=== PATIENT | male | born 1950 | race Caucasian/White ===

== ENCOUNTER → 2023-11-15 12:16 | Outpatient (REF) | payer OTHER, SELFPAY | LOC: DHCBC/DCA 12:16 | PROVIDERS: ATTENDING PHYSICIAN Internal Medicine Cardiovascular Disease; FAMILY PHYSICIAN Family Medicine | DX: R06.02 Shortness of breath (principal); I51.89 Other ill-defined heart diseases; R07.89 Other chest pain | CPT/HCPCS: 78452; 93017; A9500; J2785 ==

== ENCOUNTER → 2023-11-27 07:39 | Day surgery (SDC) | payer OTHER, SELFPAY ==
[2023-11-22 13:29] VITALS: BMI 26.8
[2023-11-22 13:54] LABS: % Basophils 0.8 % (0-2); % Eosinophils 4.3 % (0-6); % Immature Granulocytes 0.3 % (0-0.5); % Lymphocytes 21.4 % (20.5-51.1); % Monocytes 10.4 % (1.7-9.3); % Neutrophils 62.8 % (42.2-75.2); Absolute Basophils 0.1 10^3/uL (0-0.2); Absolute Eosinophils 0.3 10^3/uL (0-0.7); Absolute Lymphocytes 1.6 10^3/uL (1.2-3.4); Absolute Monocytes 0.8 10^3/uL (0.1-0.6); Absolute Neutrophils 4.7 10^3/uL (1.4-6.5); Hematocrit 39.7 % (39.0-52.0); Hemoglobin 14.4 g/dL (13.0-18.0); Mean Corp Hgb Conc. 36.3 g/dL (33.0-37.0); Mean Corpuscular Volume 90.8 fL (80.0-94.0); Mean Platelet Volume 10.4 fL (7.4-10.4); Nucleated Red Blood Cells % 0 % (-); Platelet Count 152 10^3/uL (130-400); Red Blood Cell Count 4.37 10^6/uL (4.70-6.10); Red Cell Dist. Width 12.6 % (11.5-14.5); White Blood Cell Count 7.4 10^3/uL (4.8-10.8)
[2023-11-22 14:06] LABS: ALT (SGPT) 20 U/L (0-50); AST (SGOT) 23 U/L (17-59); Albumin 4.5 g/dl (3.5-5.0); Alkaline Phosphatase 79 U/L (38-126); Blood Urea Nitrogen 14 mg/dl (9-20); Calcium 9.5 mg/dl (8.4-10.2); Carbon Dioxide 27 mmol/L (22-30); Chloride 104 mmol/L (98-107); Estimated Creatinine Clearance 83 ml/min; Glucose 105 mg/dl (70-99); Potassium 4.1 mmol/L (3.5-5.1); Sodium 140 mmol/L (135-145); Total Bilirubin 0.8 mg/dl (0.2-1.3); Total Protein 7.5 g/dl (6.3-8.2); eGFR > 60.00
[2023-11-27 07:45] VITALS: BP 164/86
[2023-11-27 07:53] VITALS: BMI 27.4
--- NOTE | 2023-11-27 08:16 | PTCARENOTE ---
Pt states he took his eliquis this morning at 7am. Dr Lira made aware and in to speak to pt. Procedure cancelled for today and is to be rescheduled Monday.
--- NOTE | 2023-11-27 08:55 | PTCARENOTE ---
Pt ambulated out of recovery room without difficulty.
== END ==
LOC: CATH 07:39
PROVIDERS: ATTENDING PHYSICIAN Internal Medicine Cardiovascular Disease; FAMILY PHYSICIAN Family Medicine
DX: I48.0 Paroxysmal atrial fibrillation (principal); Z53.09 Procedure and treatment not carried out because of other contraindication; R07.89 Other chest pain; R06.02 Shortness of breath; I11.9 Hypertensive heart disease without heart failure; E78.2 Mixed hyperlipidemia; Z79.01 Long term (current) use of anticoagulants
CPT/HCPCS: 93005; 36415; 80053; 85025

== ENCOUNTER 2023-11-29 10:42 | Day surgery (SDC) | payer OTHER, SELFPAY ==
[2023-11-29] VITALS (10 sets, daily range): BP systolic 111–181; BP diastolic 66–88; BMI 26.8
[2023-11-29] MEDS: LOW STRENGTH ASPIRIN 324 MG PO (11:14)
[2023-11-29] MEDS: NSS 245 ML IV (11:17)
--- NOTE | 2023-11-29 12:45 | ITS.CL.ANGIO ---
[facility] - Angioplasty
Angioplasty
Procedure Report:
CARDIAC CATHETERIZATION REPORT
Date of Procedure: 11/29/2023
Referring: Alexis Lira D.O.
INDICATION: Accelerating angina, abnormal stress test.
PROCEDURE:
1. Left heart catheterization.
2. Coronary angiography.
3. Successful PCI to the ostium of the second diagonal.
ACCESS:
6 Pakistani right radial artery.
CATHETERS:
1. 5 Pakistani JR4.
2. 5 Pakistani JL 3.5.
3. 6 Pakistani EBU 4.0 guiding catheter.
HEMODYNAMIC DATA
Weight (kg): 78.9
AO (s/d/x, mmHg): 142/70/98
LV (s/x mmHg): 154/16
LEFT VENTRICULOGRAPHY: Not performed.
CORONARY ANGIOGRAPHY
Dominance: Left.
Left Main: Normal size, bifurcating vessel. There is no coronary artery disease.
LAD: Normal size vessel giving rise to 2 significant diagonals. There are luminal irregularities in the LAD. There is a 90% lesion in the ostium/proximal margin of the second diagonal.
Ramus: Congenitally absent.
Circumflex: Large size, dominant vessel giving rise to 2 significant marginals before terminating as an LPDA. There are minor luminal irregularities.
RCA: Small nondominant vessel.
INTERVENTION(S)
1. Successful PCI of the 90% ostial/proximal D2 lesion (Medtronic [place] 2.0 x 15 AYESHA) with reduction in stenosis to 0%, maintaining RAFAT-3 flow.
Narrative:
The decision was made to proceed with percutaneous coronary intervention. The diagnostic catheter was removed over a wire and a 6Fr EBU 4.0 guiding catheter was advanced to the aortic root and seated in the left main coronary artery. Additional
heparin was given and a Power Turn Flex wire was advanced into the distal second diagonal. A BMW wire was then advanced into the LAD proper for protection. Given the significant amount of overlap with the left dominant system on angiography, the
decision was made to advance a 6 Pakistani guide liner over a 2.0 x 12 semicompliant balloon in order to isolate the LAD and obtain better visualization. The guide liner was seated in the proximal LAD. During this positioning, the 2.0 x 12
semicompliant balloon was advanced across the culprit lesion in the diagonal. Angiography performed during positioning of the GuideLiner showed that the presence of the balloon across the lesion was occlusive, confirming the severity of the lesion.
The 90% ostial/proximal D2 lesion was predilated with a 2.0 x 12 semi-compliant balloon to 12 finesse. The semi-compliant balloon was removed and a Medtronic Wade Oxford 2.0 x 15 drug-eluting stent was advanced. The stent was deployed at 12
atmospheres. The stent balloon was removed. Angiography was performed in orthogonal views, confirming good stent expansion and an excellent angiographic result. The coronary wire was withdrawn and the guide was disengaged from the artery. The
catheter was removed over a standard J-wire.
Closure Device: Vascular band.
Radiation (mGy): 932.26
DAP (cm2.Gy): 54.1075
Fluoroscopy time (minutes): 9.4
Sedation time (minutes): 43
CONCLUSIONS
1. Left dominant circulation with luminal irregularities throughout and a 90% lesion in the ostium/proximal margin of the second diagonal, status post successful PCI (Medtronic Wade Oxford 2.0 x 15 AYESHA) with reduction in stenosis to 0%,
maintaining RAFAT-3 flow.
2. Top normal to mildly elevated filling pressures (LVEDP = 16 mmHg at 78.9 kg).
RECOMMENDATIONS:
1. Expectant management after cardiac catheterization via right radial approach.
2. Limited weight bearing on the right wrist for one week.
3. Antithrombotic therapy with clopidogrel and apixaban. No role for aspirin at this time.
4. Aggressive secondary prevention. Increase atorvastatin to 40 mg daily. Goal LDL <55.
5. Referral to cardiac rehab.
6. Stable for outpatient follow-up.
Copy to: Alexis Lira D.O., Miguel Reddy D.O.
Alexsi Lira DO, FACC, FACP
--- NOTE | 2023-11-29 14:47 | W.PN.UPDATE ---
Update Note
Progress Note Update
73 yo WM s/p PCI D2 x1 AYESHA (same day) He denies cp, sob, alessandro diet, voiding, amb w/o dizziness, R rad site c/d/i, EKG SB no new ST changes. He will be on Plavix and Eliquis (resume tonight). We will increase atorvastatin to 40mg daily. Cardiac rehab
c/s. He will f/u [facility] in 2 weeks. He is for d/c home after 530p if remains stable.
CONCLUSIONS
1. Left dominant circulation with luminal irregularities throughout and a 90% lesion in the ostium/proximal margin of the second diagonal, status post successful PCI (Medtronic [place] 2.0 x 15 AYESHA) with reduction in stenosis to 0%,
maintaining RAFAT-3 flow.
2. Top normal to mildly elevated filling pressures (LVEDP = 16 mmHg at 78.9 kg).
[2023-11-29 15:31] LABS: ACT-LR - POC > 397 Seconds (116-155)
== END 2023-11-29 17:05 | disposition home or self-care (01) ==
LOC: CATH 10:42
PROVIDERS: ATTENDING PHYSICIAN Internal Medicine Cardiovascular Disease; FAMILY PHYSICIAN Family Medicine
DX: I25.110 Atherosclerotic heart disease of native coronary artery with unstable angina pectoris (principal); J68.3 Other acute and subacute respiratory conditions due to chemicals, gases, fumes and vapors; E78.2 Mixed hyperlipidemia; I48.91 Unspecified atrial fibrillation; I10 Essential (primary) hypertension; Z79.82 Long term (current) use of aspirin; Z79.01 Long term (current) use of anticoagulants; Z79.02 Long term (current) use of antithrombotics/antiplatelets
CPT/HCPCS: 85347; 93005; 93458; C1725; C1769; C1874; C1887; C1894; C9600; Q9967

== ENCOUNTER → 2023-12-07 11:36 | Outpatient (REF) | payer OTHER, SELFPAY | LOC: HWRCS 11:36 | PROVIDERS: ATTENDING PHYSICIAN Internal Medicine Cardiovascular Disease; FAMILY PHYSICIAN Family Medicine | DX: R06.02 Shortness of breath (principal); I51.89 Other ill-defined heart diseases; R07.89 Other chest pain | CPT/HCPCS: 93306 ==

== ENCOUNTER 2024-03-05 06:32 | Day surgery (SDC) | payer OTHER, SELFPAY ==
[2024-02-28 10:05] VITALS: BMI 27.1
[2024-02-28 10:40] LABS: % Basophils 0.9 % (0-2); % Eosinophils 3.2 % (0-6); % Immature Granulocytes 0.2 % (0-0.5); % Lymphocytes 19.6 % (20.5-51.1); % Monocytes 11.8 % (1.7-9.3); % Neutrophils 64.3 % (42.2-75.2); Absolute Basophils 0.1 10^3/uL (0-0.2); Absolute Eosinophils 0.3 10^3/uL (0-0.7); Absolute Lymphocytes 1.6 10^3/uL (1.2-3.4); Absolute Neutrophils 5.2 10^3/uL (1.4-6.5); Hematocrit 39.7 % (39.0-52.0); Hemoglobin 14.1 g/dL (13.0-18.0); Mean Corp Hgb Conc. 35.5 g/dL (33.0-37.0); Mean Corpuscular Hgb 33.4 pg (27.0-31.0); Mean Corpuscular Volume 94.1 fL (80.0-94.0); Mean Platelet Volume 10.7 fL (7.4-10.4); Nucleated Red Blood Cells % 0 % (-); Platelet Count 157 10^3/uL (130-400); Red Blood Cell Count 4.22 10^6/uL (4.70-6.10); Red Cell Dist. Width 12.5 % (11.5-14.5)
[2024-02-28 10:46] LABS: ALT (SGPT) 41 U/L (0-50); AST (SGOT) 32 U/L (17-59); Albumin 4.5 g/dl (3.5-5.0); Alkaline Phosphatase 85 U/L (38-126); Blood Urea Nitrogen 17 mg/dl (9-20); Calcium 9.6 mg/dl (8.4-10.2); Carbon Dioxide 26 mmol/L (22-30); Chloride 105 mmol/L (98-107); Estimated Creatinine Clearance 82 ml/min; Glucose 103 mg/dl (70-99); Potassium 4.3 mmol/L (3.5-5.1); Sodium 144 mmol/L (135-145); Total Bilirubin 0.8 mg/dl (0.2-1.3); Total Protein 7.1 g/dl (6.3-8.2); eGFR > 60.00
[2024-03-05] VITALS (28 sets, daily range): BP systolic 103–179; BP diastolic 54–109
[2024-03-05 08:49] LABS: ACT-LR - POC 311 Seconds (116-155)
[2024-03-05 09:06] LABS: ACT-LR - POC 343 Seconds (116-155)
[2024-03-05 09:27] LABS: ACT-LR - POC 380 Seconds (116-155)
[2024-03-05 09:54] LABS: ACT-LR - POC 392 Seconds (116-155)
--- NOTE | 2024-03-05 10:28 | ITS.CL.ABL ---
[facility] - Ablation
Ablation
Procedure Report:
AFIB ablation:
Mr. Aaron is a very pleasant 73 yr old gentleman with symptomatic paroxysmal AF presented today to the EP lab for atrial fibrillation ablation.
Date of the Procedure:
03/05/2024
Indications:
Paroxysmal atrial fibrillation
Pre-Operative Diagnosis:
Paroxysmal atrial fibrillation
Post-Operative Diagnosis:
Paroxysmal atrial fibrillation
Procedure Performed:
Atrial fibrillation ablation with Pulsed-Field approach for pulmonary vein isolation
Performing Physician:
Dior Galeas MD
Assistants:
EP staff
Anesthesia:
See anesthesia records
Detailed Description of the Procedure:
Written informed consent was obtained from the patient after a full explanation of the risks and benefits of the procedure including the risks of sedation and anesthesia.
The patient was brought to the electrophysiology laboratory in stable condition in fasting state. Continuous electrocardiographic and hemodynamic monitoring was initiated.
The initial rhythm was normal sinus rhythm.
The procedure site was meticulously prepared with surgical scrub and allowed to dry with no pooling. Sterile draping was applied to cover the procedure site. The image intensifier was draped with sterile bag and positioned over the patient. After
infusion of local anesthetic, vascular access was obtained under ultrasound guidance and sheaths were placed over guide wire as detailed below.
Sheath and Catheter Placement:
The following catheters / sheaths were placed
Sheaths:
15Fr steerable sheath (FlexCath Cross�, Synacortronic) in right femoral vein in right femoral vein
9Fr in right femoral vein
7Fr in right femoral vein
Catheters:
Carto Pentaray mapping catheter � at locations of RA, LA
PulseSelect� PFA catheter
ICE catheter -AcuNav - at locations of RA, SVC, and RV.
Decapolar Bard catheter in RA and CS
Intracardiac ECHO:
An 8-Maldivian AcuNav intracardiac ECHO (ICE) probe was advanced through the 9-Maldivian sheath in the right femoral vein into the right atrium under fluoroscopic and ICE ultrasound image guidance and a baseline ECHO study was performed. The left atrial
size was mildly dilated. There was moderate tricuspid regurgitation. The aortic valve was grossly normal. There was normal left ventricular systolic functions. There is trace pericardial effusion. All the four veins were identified and has flow
identified.
During the procedure, ICE was used for monitoring of complications, guidance of trans-septal puncture, monitor the catheter position and tracking ablation lesions. No change in the pericardial space noted throughout the procedure.
Trans-septal Puncture:
Heparin was initiated and infused to maintain appropriate ACT. A J-tipped guidewire was advanced through the 8-Maldivian sheath in the right femoral vein into the superior vena cava under fluoroscopic and ICE guidance. The 8-Maldivian sheath was exchanged
for a FlexCath Cross sheath which was advanced into the superior vena cava. An AcPaperV transseptal access system was utilized to perform the trans-septal puncture. The apparatus was withdrawn until it was in contact with the fossa ovalis. The
position was adjusted based on fluoroscopy and ultrasound images from ICE. Under fluoroscopic, hemodynamic and ICE ultrasound guidance, left atrium was cannulated by advancing the needle. Once atrial septum was cannulated, the needle was pulled back
and a guide wire was advanced through the needle into the left atrium. The guide wire was advanced into the left superior pulmonary vein. Both the sheath and the dilator was advanced into the left atrium. The dilator with the needle was withdrawn.
Blood was aspirated from the FlexCath cross sheath and arterial blood confirmed. The sheath was flushed. Saline injection noted into the left atrium on ICE. The mapping catheter was advanced in the Agilis sheath into the left pulmonary vein. Left
atrial pressure was measured.
3D Electroanatomic Mapping:
Using the Pentaray catheter advanced through sheath into the left atrium, an electroanatomic map (EAM) of the left atrium was created using GoodThreads mapping system. The map was used for localization of catheter position and tacking of
ablation lesions. The EAM of the left atrium showed 4 pulmonary veins with two left sided and two right sided veins electrically connected to the body the LA. The EAM showed no significant scar in the left atrium.
The LA was normal in size.
Following the EAM, preparation were made for ablation. Glycopyrrolate 0.2 mg was given prior to the ablation to prevent vasovagal response.
Ablation:
Ablation # 1: Pulmonary vein Isolation:
Using PulseSelect� pulsed field ablation system, pulmonary vein isolation was acieved. First the ablation catheter was placed in the LSPV and ostial ablation lesions were performed in a counter clock martinez approach all around the PV ostium
circumferentially. Then the catheter was placed on the antral location and multiple ablation lesions were placed circumferentially on the antrum of the vein.
In the similar fashion, the LIPV were isolated.
Then the catheter was moved to right sided veins.
The ostial and antral ablations were placed as noted above in the RSPV and RIPV.
Post ablation Electroanatomic mapping:
Once the sinus rhythm achieved, the LA was mapped with Pentaray in detail.
The veins were isolated and normal electrograms noted in the posterior wall. Excellent WACA ablation noted with excellent demarcation of LA myocardium and isolated antral tissue.
EPS and Confirmation of the PVI and bidirectional block:
Following achievement of entrance block at the pulmonary veins, pacing from the HD catheter in each of the four veins at 10 milliamps for 2 milliseconds showed entrance and exit block. All PVI were rechecked at the end of the case and remained
isolated. Entrance and exit block were demonstrated in all veins.
Procedure End
ICE study was done again that showed no epicardial accumulation. No complications noted.
Following the completion of the EP study, catheters were removed. Protamine 30 mg was given at the end of the procedure and ACT was checked repeatedly. The sheaths were removed and hemostasis achieved with manual compression after acceptable ACT is
achieved.
Left atrial Pressure:
Mean LA pressure was 8mmHg
Estimated Blood loss:
<10 cc
Specimens Removed:
None.
Implants / Devices:
None
Urine output:
None
Packs / Drains/ Tubes:
None
Instrument / Sponge Count Correct:
Yes
Complications of the Procedure:
None
Condition of Patient at Time of Transfer:
Hemodynamically stable with no neurological or vascular compromise.
Summary:
Successful atrial fibrillation ablation with Pulsed Field approach for pulmonary vein isolation
Figures from the Procedure:
Figure 1: The electroanatomic mapping (EAM) of the left atrium with bipolar voltage (purple indicates normal electrical activity with red as no myocardial muscle electric activity indicating a line of block or scar.
[2024-03-05] MEDS: ANESTHETIC LOZENGE 1 LOZENGE PO (12:19)
--- NOTE | 2024-03-05 13:30 | W.PN.UPDATE ---
Update Note
Progress Note Update
73 yo WM s/p PVI (same day) He denies cp, sob, alessandro diet, EKG SR, R fem site after getting oob had bleed, manual pressure held for small HT, which is soft but ecchymotic. He will resume OAC Eliquis dose tonight at home. He will continue Plavix.
Activity restrictions reviewed. He will f/u Dr. Lira in 2 mo. He is for d/c home after 4p if groin stable and able to void.
Mr. Aaron is a very pleasant 73 yr old gentleman with symptomatic paroxysmal AF presented today to the EP lab for atrial fibrillation ablation.
03/05/2024
Procedure Performed:
Atrial fibrillation ablation with Pulsed-Field approach for pulmonary vein isolation
== END 2024-03-05 17:15 | disposition home or self-care (01) ==
LOC: CATH 06:32
PROVIDERS: ATTENDING PHYSICIAN Internal Medicine Cardiovascular Disease; FAMILY PHYSICIAN Family Medicine; OTHER PHYSICIAN Internal Medicine Cardiovascular Disease
DX: I48.0 Paroxysmal atrial fibrillation (principal); I25.10 Atherosclerotic heart disease of native coronary artery without angina pectoris; I10 Essential (primary) hypertension; E78.5 Hyperlipidemia, unspecified; J45.909 Unspecified asthma, uncomplicated; I34.0 Nonrheumatic mitral (valve) insufficiency; G47.00 Insomnia, unspecified; Z79.02 Long term (current) use of antithrombotics/antiplatelets; Z79.899 Other long term (current) drug therapy; Z79.01 Long term (current) use of anticoagulants; N40.0 Benign prostatic hyperplasia without lower urinary tract symptoms; I77.810 Thoracic aortic ectasia
CPT/HCPCS: C1894; C1730; C1733; C1769; C1732; C1892; C1759; 36415; 75572; 80053; 85025; 85347; 86850; 86900; 86901; 93005; 93656; C1760; Q9967

== ENCOUNTER → 2024-06-12 14:59 | Outpatient (REF) | payer OTHER, SELFPAY | LOC: RCS 14:59 | PROVIDERS: ATTENDING PHYSICIAN Internal Medicine Cardiovascular Disease; FAMILY PHYSICIAN Family Medicine | DX: R06.02 Shortness of breath (principal); I51.89 Other ill-defined heart diseases; I48.0 Paroxysmal atrial fibrillation; R07.89 Other chest pain | CPT/HCPCS: 93306 ==

== ENCOUNTER → 2024-11-15 13:01 | Outpatient (REF) | payer OTHER, SELFPAY | LOC: RCS 13:01 | PROVIDERS: ATTENDING PHYSICIAN Internal Medicine Cardiovascular Disease; FAMILY PHYSICIAN Family Medicine | DX: I51.89 Other ill-defined heart diseases (principal); Z95.5 Presence of coronary angioplasty implant and graft; R06.09 Other forms of dyspnea | CPT/HCPCS: 93306 ==

== ENCOUNTER → 2024-11-19 13:13 | Outpatient (REF) | payer OTHER, SELFPAY | LOC: RCS 13:13 | PROVIDERS: ATTENDING PHYSICIAN Internal Medicine Cardiovascular Disease; FAMILY PHYSICIAN Family Medicine | DX: I51.89 Other ill-defined heart diseases (principal); Z95.5 Presence of coronary angioplasty implant and graft; R06.09 Other forms of dyspnea | CPT/HCPCS: 93017; 93350 ==

== ENCOUNTER 2025-03-02 19:05 | Emergency (ER) | payer OTHER, SELFPAY ==
[2025-03-02 19:10] VITALS: BP 161/87
--- NOTE | 2025-03-02 20:03 | ED.GENMED ---
History of Present Illness
General
Chief Complaint: Musculo-Skeletal Complaint
Time Seen by Provider: 03/02/25 19:57
History of Present Illness
History of Present Illness:
74-year-old male presents to the emergency department for evaluation of left leg swelling and bruising for the past week. He states he ran into a trailer with his left leg and symptoms began shortly thereafter. He is primarily concerned due to the
degree of swelling and the discoloration of his toes. Denies any numbness or significant pain to the leg
Past History
Past History
ED Past Medical History: Arrthythmia and HTN
ED Past Surgical History: None
Social History
Tobacco: Non-smoker
Personal:
Living: with family
Review of Systems
Review of Systems
Allergies reviewed?: Yes
All Other Systems: ROS reviewed and negative except as documented in HPI and ROS
Phy Exam
Physical Exam
Physical Exam:
GEN: Well appearing, NAD, WDWN
HEENT: Oral mucosa moist, no scleral icterus
Cardiac: Regular rate
Lung: No respiratory distress, no tachypnea
MSK: No gross deformity or injuries. Diffuse edema to the entire left lower extremity with widespread ecchymosis to the left medial thigh, circumferentially to the left calf, and the left toes, dorsalis pedis pulses strong
Skin: Good color, no pallor or jaundice, no rashes
Neuro: AO x3, moves all extremities freely
Psych: Calm, cooperative
Course
Vital Signs
Initial and Last Documented VS:
Initial Vital Signs
Temp Pulse Resp BP Pulse Ox
97.6 F 57 18 161/87 97
03/02/25 19:10 03/02/25 19:10 03/02/25 19:10 03/02/25 19:10 03/02/25 19:10
Last Documented Vital Signs
Temp Pulse Resp BP Pulse Ox
97.6 F 57 18 161/87 97
03/02/25 19:10 03/02/25 19:10 03/02/25 19:10 03/02/25 19:10 03/02/25 20:03
MDM/Problems Addressed
MDM/Problems Addressed:
Likely persistent venous bleeding due to Eliquis use, pulses are strong. No concern for DVT given anticoagulant use, compartments are soft
*Pulse Oximetry
SaO2: 97
Oxygen Mode of Delivery: Room air
Patient hypoxic: no
*Critical Care Note
Total Time (30-74mins, 75-104mins- exclusive of procedures): Not Applicable
ED Attending Note
-
Portions of this chart may have been created with voice recognition software.� Occasional wrong word or��sound alike� substitutions may have occurred due to the inherent limitations of voice recognition software.
Discharge Plan
Departure
Patient Disposition: Home (Routine Discharge)
Date of Disposition: 03/02/25
Time of Disposition: 20:03
Patient with high blood pressure during this ER visit?: No
Discharge Problem:
Contusion of left leg
Instructions: Contusion (DC)
Prescriptions:
No Action
escitalopram oxalate 10 MG tablet
10 mg PO DAILYPRN PRN (Reason: anxiety)
Eliquis 5 MG tablet
5 mg PO BID
tamsulosin [Flomax] 0.4 MG capsule
0.4 mg PO DAILY
multivitamin Tablet
1 tab PO DAILY
furosemide 40 mg Tablet
40 mg PO DAILY
albuterol sulfate 2.5 mg /3 mL (0.083 %) Solution For Nebulization
2.5 mg INHALATION Q6HPRN PRN (Reason: SOB)
lisinopril 20 mg Tablet
20 mg PO DAILY
montelukast 10 mg Tablet
10 mg PO DAILY
albuterol sulfate 1 PUFF HFA aerosol inhaler
2 puff inhalation Q6HPRN PRN (Reason: Wheezing, shortness of breath)
melatonin 5 MG tablet
5 mg PO HSPRN PRN (Reason: sleep)
azelastine 205.5 mcg (0.15 %) [place],Non-Aerosol
1 spray INTRANASAL QPM
atorvastatin 40 mg tablet
40 mg PO QPM Qty: 90 10RF
clopidogrel 75 mg tablet
75 mg PO DAILY Qty: 90 10RF
nitroglycerin 0.4 mg tablet, sublingual
0.4 mg sublingual [id number] PRN (Reason: chest pain) Qty: 25 5RF
Activity Restrictions/Additional Instructions:
Elevate the leg and use compression (Khris wrap or compression sock) to reduce swelling
Interventions
Interventions:
*Risk Screen - Suicide Last Done: 03/02/25 19:10
*General Assessment Last Done: 03/02/25 19:10
*Neglect/Abuse Screening Last Done: 03/02/25 19:10
*ED- Fall Risk Assessment Last Done: 03/02/25 20:39
*ED COVID-19 Vaccine History Last Done: 03/02/25 20:39
*Nursing Disposition Last Done: 03/02/25 20:39
ED-Musculoskeletal Assessment Last Done: 03/02/25 20:39
Discharge Date and Time
Discharge Date/Time: 03/02/25 20:40
Print Language: FILIPINO
== END 2025-03-02 20:40 | disposition home or self-care (01) ==
LOC: EMR 19:05
PROVIDERS: EMERGENCY PHYSICIAN Student in an Organized Health Care Education/Training Program; FAMILY PHYSICIAN Family Medicine
DX: S80.12XA Contusion of left lower leg, initial encounter (principal); W22.8XXA Striking against or struck by other objects, initial encounter; I10 Essential (primary) hypertension
CPT/HCPCS: 99282

== ENCOUNTER → 2025-03-30 13:21 | Outpatient (REF) | payer OTHER, SELFPAY | LOC: PAVMRI 13:21 | PROVIDERS: ATTENDING PHYSICIAN Student in an Organized Health Care Education/Training Program; FAMILY PHYSICIAN Family Medicine | DX: M25.562 Pain in left knee (principal) | CPT/HCPCS: 73721 ==

== ENCOUNTER 2025-04-29 15:34 | Emergency (ER) | payer OTHER, SELFPAY ==
[2025-04-29 15:44] VITALS: BP 150/76
[2025-04-29 16:10] LABS: Hematocrit 40.2 % (39.0-52.0); Hemoglobin 14.1 g/dL (13.0-18.0); Mean Corp Hgb Conc. 35.1 g/dL (33.0-37.0); Mean Corpuscular Volume 91.8 fL (80.0-94.0); Nucleated Red Blood Cells % 0 % (-); Platelet Count 136 10^3/uL (130-400); Red Cell Dist. Width 12.4 % (11.5-14.5)
[2025-04-29 16:20] LABS: ALT (SGPT) 19 U/L (0-50); AST (SGOT) 18 U/L (17-59); Albumin 4.2 g/dl (3.5-5.0); Alkaline Phosphatase 93 U/L (38-126); Blood Urea Nitrogen 14 mg/dl (9-20); Calcium 9.4 mg/dl (8.4-10.2); Carbon Dioxide 27 mmol/L (22-30); Chloride 104 mmol/L (98-107); Glucose 102 mg/dl (70-99); Potassium 3.6 mmol/L (3.5-5.1); Sodium 136 mmol/L (135-145); Total Protein 7.1 g/dl (6.3-8.2); eGFR > 60.00
[2025-04-29] MEDS: ZOSYN 100 IV (18:28)
[2025-04-29 19:20] VITALS: BP 165/74
--- NOTE | 2025-04-29 19:34 | ED.GENMED ---
History of Present Illness
<TALITA Love Jr. Last Filed: 04/29/25 20:37>
General
Chief Complaint: Facial Problem
Source: patient
Exam Limitations: none
Time Seen by Provider: 04/29/25 17:36
Nursing documentation reviewed up to this point in time: agreed with
History of Present Illness
History of Present Illness:
74-year-old male with history of A-fib currently on Eliquis presenting to the emergency department today with concerns of swelling to the right cheek region that began 2 days ago. Ongoing and progressing since. Denies any systemic symptoms no
fevers no trouble swallowing or breathing no change in vision. Does come to have ongoing dental issues.
Past History
<TALITA Love Jr. Last Filed: 04/29/25 20:37>
Past History
ED Past Medical History: Arrthythmia and HTN
ED Past Surgical History: None
Social History
Tobacco: Non-smoker
Personal:
Living: with family
Review of Systems
<TALITA Love Jr. Last Filed: 04/29/25 20:37>
Review of Systems
Allergies reviewed?: Yes
All Other Systems: ROS reviewed and negative except as documented in HPI and ROS
Phy Exam
<TALITA Love Jr. Last Filed: 04/29/25 20:37>
Physical Exam
Physical Exam:
GENERAL: Alert , in no apparent distress
EYE: pupils equal and reactive
NECK: Supple, no significant adenopathy.
ENT: Moderate swelling to the right cheek region with small line of induration no fluctuance small amount of swelling to the infraorbital region as well. o/p clr, mmm.
CARDIAC: Regular rate and rhythm .
LUNGS: Clear breath sounds bilaterally, no acute respiratory distress, no wheezes/rales/rhonchi
ABDOMEN: Soft, without focal tenderness, no r/g, no cvat
NEUROLOGICAL: Alert and oriented, no focal neuro deficits
SKIN: Warm and dry, skin intact.
MUSCULOSKELETAL: No edema, well perfused.
PSYCH: Normal and appropriate interaction.
Course
<Vasyl Markham Jr., PA-C - Last Filed: 04/29/25 20:37>
Orders/Labs/Results
Orders:
Orders
04/29/25 15:53
CBC/With Diff [Complete Blood Count/With Diff] Urgent
CMP [Comprehensive Metabolic Panel] Urgent
Lactate Level [Lactic Acid] Urgent
04/29/25 18:11
CT Facial Bones W/ Iv Contrast Urgent
Comment:
Reason For Exam: right facial swelling
Piperacillin/Tazo 4.5 Gram [Zosyn] 4.5 gram in 100 ml IV NOW
04/29/25 20:10
Amoxicillin 875 mg/Clav 125 mg [Augmentin 875 mg/125 mg] 1 tablet PO NOW STA
Abnormal Lab Results
04/29/25
15:53
WBC 11.9 H 10^3/uL
(4.8-10.8)
RBC 4.38 L 10^6/uL
(4.70-6.10)
MCH 32.2 H pg
(27.0-31.0)
MPV 10.9 H fL
(7.4-10.4)
Absolute Neuts (auto) 8.7 H 10^3/uL
(1.4-6.5)
Absolute Monos (auto) 1.7 H 10^3/uL
(0.1-0.6)
Lymphocytes % 11.7 L %
(20.5-51.1)
Monocytes % 14.5 H %
(1.7-9.3)
Glucose 102 H mg/dl
(70-99)
04/29/25 15:53
04/29/25 15:53
Vital Signs
Initial and Last Documented VS:
Initial Vital Signs
Temp Pulse Resp BP Pulse Ox
98.6 F 60 15 150/76 98
04/29/25 15:44 04/29/25 15:44 04/29/25 15:44 04/29/25 15:44 04/29/25 15:44
Last Documented Vital Signs
Temp Pulse Resp BP Pulse Ox
98.6 F 65 16 154/78 99
04/29/25 15:44 04/29/25 20:29 04/29/25 20:29 04/29/25 20:29 04/29/25 20:29
<Chiquis Gil, DO - Last Filed: 04/29/25 19:52>
Orders/Labs/Results
Orders:
Orders
04/29/25 15:53
CBC/With Diff [Complete Blood Count/With Diff] Urgent
CMP [Comprehensive Metabolic Panel] Urgent
Lactate Level [Lactic Acid] Urgent
04/29/25 18:11
CT Facial Bones W/ Iv Contrast Urgent
Comment:
Reason For Exam: right facial swelling
Piperacillin/Tazo 4.5 Gram [Zosyn] 4.5 gram in 100 ml IV NOW
04/29/25 20:10
Amoxicillin 875 mg/Clav 125 mg [Augmentin 875 mg/125 mg] 1 tablet PO NOW STA
Abnormal Lab Results
04/29/25
15:53
WBC 11.9 H 10^3/uL
(4.8-10.8)
RBC 4.38 L 10^6/uL
(4.70-6.10)
MCH 32.2 H pg
(27.0-31.0)
MPV 10.9 H fL
(7.4-10.4)
Absolute Neuts (auto) 8.7 H 10^3/uL
(1.4-6.5)
Absolute Monos (auto) 1.7 H 10^3/uL
(0.1-0.6)
Lymphocytes % 11.7 L %
(20.5-51.1)
Monocytes % 14.5 H %
(1.7-9.3)
Glucose 102 H mg/dl
(70-99)
04/29/25 15:53
04/29/25 15:53
Vital Signs
Initial and Last Documented VS:
Initial Vital Signs
Temp Pulse Resp BP Pulse Ox
98.6 F 60 15 150/76 98
04/29/25 15:44 04/29/25 15:44 04/29/25 15:44 04/29/25 15:44 04/29/25 15:44
Last Documented Vital Signs
Temp Pulse Resp BP Pulse Ox
98.6 F 65 16 154/78 99
04/29/25 15:44 04/29/25 20:29 04/29/25 20:29 04/29/25 20:29 04/29/25 20:29
Procedures
<Vasyl Markham Jr., PA-C - Last Filed: 04/29/25 20:37>
Incision/Drainage/Joint Aspiration
Right Face:
Anethesia: other (Benzacaine)
Type of procedure: incise and drain
Nature of site: abscess
Description of abscess: less than 3cm
Loculations broken up: Yes
How much fluid was obtained?: large amount
Fluid description: purulent
Treatment: left open for drainage
<Vasyl Markham Jr., PA-C - Last Filed: 04/29/25 20:37>
MDM/Problems Addressed
MDM/Problems Addressed:
74-year-old male presenting to the emergency department today with concerns of right sided facial swelling worsening over the past 2 days. On arrival hypertensive otherwise vital signs are normal afebrile white count of 11.[address] scan showing multiple abscess to the face overlying cellulitis. 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
with. Additional cervical spine degenerative disease. Patient was notified of all findings. Case was discussed with oral maxillofacial surgery that recommended Augmentin and close the patient follow-up in their office tomorrow. He was given
their information. He was also given information for vascular surgery follow-up.
<Vasyl Markham Jr., PA-C - Last Filed: 04/29/25 20:37>
*Pulse Oximetry
SaO2: 98
Oxygen Mode of Delivery: Room air
Patient hypoxic: no (99)
*Critical Care Note
Total Time (30-74mins, 75-104mins- exclusive of procedures): Not Applicable
ED Attending Note
<Vasyl Markham Jr., PA-C - Last Filed: 04/29/25 20:37>
-
Portions of this chart may have been created with voice recognition software.� Occasional wrong word or��sound alike� substitutions may have occurred due to the inherent limitations of voice recognition software.
<Chiquis Gil DO - Last Filed: 04/29/25 19:52>
ED Attending Note
Patient seen and examined by attending physician: Yes
I performed the substantive portion of visit, reviewed & personally made and approve the management plan that is documented in note by myself or NURY.: Yes
I performed a history and physical exam of patient and discussed management with resident, I reviewed resident's note and agree with documented findings and plan of care.: Yes
ED Attending Note:
74-year-old male with prior history of COVID presenting to the emergency department for dental pain and swelling. Patient reports 2 days ago he started to have swelling to the right side of his mouth with pain. Notes that it has been sometime
since he has seen a dentist, 2 years ago contracted COVID, and has had to see pulmonary every month since. Multiple teeth extractions in the past, has a upper dental bridge. Denies fever. Denies difficulty breathing. Vital signs on arrival are
normal.
On exam, patient in no acute distress, however does have significant swelling to the right side of the face extending up to the lower orbital region. No ocular component without concern for orbital cellulitis. However, on tooth examination,
fluctuance of the inner gumline around tooth #16 and 15. Concern for acute dental abscess and apical abscess. CT obtained prior to my assessment, which shows multiple dental abscesses at that region. Will consult with oral maxillofacial surgery
and plan for incision and drainage.
19:50 - Oral maxillofacial surgery says they can see patient in the office tomorrow and advises starting patient on antibiotics. Will incise with plan for discharge and outpatient follow-up, hemodynamically stable
Discharge Plan
Departure
Patient Disposition: Home (Routine Discharge)
Date of Disposition: 04/29/25
Time of Disposition: 20:21
Patient with high blood pressure during this ER visit?: Yes
Condition: Good
Covid-19: Not Applicable
Discharge Problem:
Dental abscess, Vertebral artery occlusion
Instructions: Dental abscess - ED (DC), BLOOD PRESSURE
Prescriptions:
New
amoxicillin-pot clavulanate 875-125 mg tablet
1 tab PO BID 7 Days Qty: 14 0RF
No Action
escitalopram oxalate 10 MG tablet
10 mg PO DAILYPRN PRN (Reason: anxiety)
Eliquis 5 MG tablet
5 mg PO BID
tamsulosin [Flomax] 0.4 MG capsule
0.4 mg PO DAILY
multivitamin Tablet
1 tab PO DAILY
furosemide 40 mg Tablet
40 mg PO DAILY
albuterol sulfate 2.5 mg /3 mL (0.083 %) Solution For Nebulization
2.5 mg INHALATION Q6HPRN PRN (Reason: SOB)
lisinopril 20 mg Tablet
20 mg PO DAILY
montelukast 10 mg Tablet
10 mg PO DAILY
albuterol sulfate 1 PUFF HFA aerosol inhaler
2 puff inhalation Q6HPRN PRN (Reason: Wheezing, shortness of breath)
melatonin 5 MG tablet
5 mg PO HSPRN PRN (Reason: sleep)
azelastine 205.5 mcg (0.15 %) Bat[place]lor,Non-Aerosol
1 spray INTRANASAL QPM
atorvastatin 40 mg tablet
40 mg PO QPM Qty: 90 10RF
clopidogrel 75 mg tablet
75 mg PO DAILY Qty: 90 10RF
nitroglycerin 0.4 mg tablet, sublingual
0.4 mg sublingual [id number] PRN (Reason: chest pain) Qty: 25 5RF
Referrals:
Leo Pierce MD, DDS [Active, Oral Surgery]
Miguel Reddy DO [Family Provider, Family Practice]
Nicole Salomon MD [Active, Vascular Surgery] - Follow up in 2-3 days
Activity Restrictions/Additional Instructions:
You came to the emergency department today and you were found to have a dental abscess. There was a moderate amount of pus that we are able to drain. Please take the Augmentin twice daily and follow-up with Dr. Leo Pierce tomorrow the office is
in [place]. Please call the phone #[phone]. The dental office address is [address] [place] [address] [address] [place] [address]. Additionally please follow-up with vascular surgery please call this week to make an appointment in the next few weeks. Return
immediately for any worsening, new or concerning symptoms.
Interventions
Interventions:
*Risk Screen - Suicide Last Done: 04/29/25 15:44
*General Assessment Last Done: 04/29/25 15:44
*Neglect/Abuse Screening Last Done: 04/29/25 15:44
*ED- Fall Risk Assessment Last Done: 04/29/25 18:35
*ED COVID-19 Vaccine History Last Done: 04/29/25 15:44
*ED Influenza Vaccine History Last Done: 04/29/25 15:44
*Nursing Disposition Last Done: 04/29/25 20:29
ED- Neurological Assessment Last Done: 04/29/25 18:35
ED-Skin Assessment Last Done: 04/29/25 18:38
Discharge Date and Time
Print Language: [email or web address]
[2025-04-29] MEDS: AUGMENTIN 875 MG/125 MG 1 TABLET PO (20:14)
[2025-04-29 20:29] VITALS: BP 154/78
== END 2025-04-29 20:34 | disposition home or self-care (01) ==
LOC: EMR 15:34
PROVIDERS: Emergency Medicine; EMERGENCY PHYSICIAN Student in an Organized Health Care Education/Training Program; FAMILY PHYSICIAN Family Medicine
DX: K04.7 Periapical abscess without sinus (principal); I65.02 Occlusion and stenosis of left vertebral artery; I10 Essential (primary) hypertension; I48.91 Unspecified atrial fibrillation; Z79.01 Long term (current) use of anticoagulants; J32.0 Chronic maxillary sinusitis
CPT/HCPCS: 41800; 96374; 99284; 70487; 80053; 83605; 85025; Q9967

== ENCOUNTER → 2025-06-06 22:00 | Outpatient (REF) | payer OTHER, SELFPAY | LOC: DHSLP 22:00 | PROVIDERS: ATTENDING PHYSICIAN Internal Medicine Critical Care Medicine; FAMILY PHYSICIAN Family Medicine | DX: G47.33 Obstructive sleep apnea (adult) (pediatric) (principal) | CPT/HCPCS: 95806 ==

== ENCOUNTER 2025-06-12 08:59 | Day surgery (SDC) | payer OTHER, SELFPAY ==
[2025-06-04 10:42] VITALS: BMI 28.2
[2025-06-04 11:15] LABS: Hematocrit 42.0 % (39.0-52.0); Hemoglobin 14.7 g/dL (13.0-18.0); Mean Corp Hgb Conc. 35.0 g/dL (33.0-37.0); Mean Corpuscular Volume 89.9 fL (80.0-94.0); Nucleated Red Blood Cells % 0 % (-); Platelet Count 152 10^3/uL (130-400); Red Cell Dist. Width 12.6 % (11.5-14.5)
[2025-06-04 11:55] LABS: ALT (SGPT) 29 U/L (0-50); AST (SGOT) 25 U/L (17-59); Albumin 4.6 g/dl (3.5-5.0); Alkaline Phosphatase 88 U/L (38-126); Blood Urea Nitrogen 12 mg/dl (9-20); Calcium 9.5 mg/dl (8.4-10.2); Carbon Dioxide 31 mmol/L (22-30); Chloride 103 mmol/L (98-107); Estimated Creatinine Clearance 78 ml/min; Glucose 100 mg/dl (70-99); Potassium 4.0 mmol/L (3.5-5.1); Sodium 137 mmol/L (135-145); Total Protein 7.3 g/dl (6.3-8.2); eGFR > 60.00
[2025-06-12] VITALS (27 sets, daily range): BP systolic 121–183; BP diastolic 72–105; BMI 28.2
--- NOTE | 2025-06-12 13:32 | ITS.CL.PACE ---
[employer] - Pacemaker Implant
Pacemaker Implant
Procedure Report:
Atrial single chamber Leadless Pacemaker (Aveir) Implantation:
Mr. Aaron is a 74 yr old gentleman with sick sinus syndrome and paroxysmal atrial fibrillation with severe symptomatic bradycardia is recommended a leadless atrial pacemaker.
Indications: Severe symptomatic bradycardia with sick sinus syndrome
Date of the Procedure:
06/12/25
Pre-Operative Diagnosis: Severe bradycardia
Post-Operative Diagnosis: Severe bradycardia
Procedure Performed: Leadless atrial pacemaker placement
Performing Physician:
Dior Galeas MD
Anesthesia:
See anesthesia records
Pre-operative antibiotics:
None
Detailed Description of the Procedure:
Written informed consent was obtained from the patient after a full explanation of the risks and benefits of the procedure including the risks of sedation and anesthesia.
The patient was brought to the electrophysiology laboratory in stable condition in fasting state. Continuous electrocardiographic and hemodynamic monitoring was initiated.
The initial rhythm was sinus with second degree AV block that went to complete heart block on the table but recovered. During the case he developed atrial flutter and was cardioverted to assess the device implantation and thresholds.
The procedure site was meticulously prepared with surgical scrub and allowed to dry with no pooling. Sterile draping was applied to cover the procedure site. The image intensifier was draped with sterile bag and positioned over the patient.
After infusion of local anesthetic, vascular access was obtained under ultrasound guidance and sheaths were placed over guide wire as detailed below.
An 8Fr sheath in right femoral vein was placed and the guide wire was placed and advanced to the right IJ. Multiple gradually increasing dilators were placed and ultimately a 24Fr dilator was placed. Then the 27 Fr Aveir outer sheath outer sheath
was successfully and carefully advanced to the RA.
A 3000 units of heparin bolus was given after the access and dilation.
Atriography:
A pig tail over the guide wire was placed into the right atrium, SVC and IVC were imaged and contrast injection was done to identify the anatomic landmarks of the cardiac anatomy.
Then the pig tail was placed in the right atrial appendage and contrast injection was done to identify the margins of the appendage.
Patient went into atrial fibrillation and decision was made to cardiovert. A 200 J shock was delivered and patient was converted to sinus rhythm.
Atrial Leadless Pacemaker (Aveir) implantation:
The delivery system of the Aveir was prepped with removal of all air underwater and was advanced into the sheath to the RA with continuous saline irrigation. The sheath was pulled back to the IVC.
The Aveir was placed in the IVC and was uncovered to establish the telemetry. The delivery system was then placed in the right atrium at the target location of the basal right atrial appendage using YU and YAKUT fluoroscopic views and the wall
approximation was confirmed with contrast injection. Once adequate location was confirmed, the covering sheath was pulled out and the basal RAA was mapped. The sensitivity, threshold and the impedance was recorded.
The leadless AVEIR pacemaker was readjusted to get the best location by covering the locking mechanism with the cover and moving to a better location.
Once adequate sensing, impedance and thresholds were noted, the decision was made to deploy the device. Before the complete engagement of the device to the tissue, the device was prematurely deployed spontaneously.
The catheter was pulled and was replaced by aveir retrieval system. The atrial Aveir was captured using the retrieval tines in the right atrium and was successfully removed from the system.
A new Aveir pacemaker and new sheath was used and prepped and a brand new system was used to reengage the right atrium. The RAA had a high origin and goes deep and decision was made to engage the base of the appendage. Once adequate location is
established, confirmed by YAKUT and YU contrast injection, the device was tested. Once acceptable measures achieved, the decision was made to deploy the device at this location.
The pacemaker was imaged using fluoroscopy and a total of one and a half tuned was applied to the tip of the locking mechanism of pacemaker by imaging the chevron marker on the pacemaker.
The Aveir pacemaker was attached successfully to the right atrial appendage basal location at the lateral wall. The pacemaker was tested and adequate sensing and threshold noted.
Next, the tug test was done with the pulling the attached tethers under fluoroscopic guidance by inhibiting the motion of the device with pull and showing fixed and engaged pacemaker tip. The PPM again was tested showing stable thresholds and
excellent sensing.
Patient had gone into AF again and another 150 J shock was delivered to achieve sinus rhythm with Aveir still attached to the delivery sheath. One sinus rhythm achived, the device was tested again and was found stable and with acceptable thresholds.
Then the anchoring stylets were released and the pacemaker was released successfully without any change in the location. The anchors were pulled out of the heart into the outer sheath.
The delivery system sheath was pulled back to the IVC and the PPM was again tested showing stable numbers.
Device Information:
Right Atrial Device:
Reyes Leadless (Aveir) pacemaker-
Model #: [id number]; Serial Number: [id number] @ Lateral RA wall at the base of RAA
Measured data in the right atrium was sensing of 1.9mV, impedance of 400 ohms and threshold of 2.25V at 0.4ms
Gee parameter settings were AAIR 60 bpm. �
Procedure End
Following the completion of the Aveir implant, catheters were removed. The decision was made to also place a �figure of 8� sutures. The sheaths were removed and hemostasis achieved with manual compression.
Estimated Blood loss:
<5 cc
Specimens Removed:
None.
Implants / Devices:
None
Urine output:
None
Packs / Drains/ Tubes:
None
Instrument / Sponge Count Correct:
Yes
Complications of the Procedure:
None
Condition of Patient at Time of Transfer:
Hemodynamically stable with no neurological or vascular compromise.
Summary:
Successful implantation of single chamber MRI compatible Reyes Leadless pacemaker (Aveir AAIR)
--- NOTE | 2025-06-12 15:56 | CM ---
Chart reviewed. Patient is independent of ADLS, daughter goes to college and comes home on the weekends, 1 MARIN, 0 DME. Plan is for the patient to return home. CM to follow
--- NOTE | 2025-06-12 17:44 | PTCARENOTE ---
Figure of 8 suture clipped without incident at 1705, Pt alessandro well. R femoral puncture site with tiny amt of ooze, dsd applied and tegaderm. Dsg has remained D+I. Dr Galeas stopped by to see Pt.
[2025-06-12] MEDS: LASIX 40 MG PO (17:53)
--- NOTE | 2025-06-12 19:00 | PTCARENOTE ---
report received from previous RN, walking rounds done. pt in chair, AAOx4. pt denies any pain. A.paced on monitor, HR 60s. +peripheral pulses. R groin site stable, CDI. no edema noted. B/L breath sounds present. POX 96% on room air. +BS. pt voids
without difficulty. PIV intact and patent. see worklist for full assessment, VS, and interventions.
--- NOTE | 2025-06-12 20:40 | PTCARENOTE ---
RN called to bedside d/t oozing from pt's right groin. immediate manual pressure applied x [address] PA notied and at bedside. new dressing applied with external closure pad. pt hypertensive, otherwise VSS and asymptomatic. instructed by CT PA to
give Zestril at 2200.
[2025-06-12] MEDS: SINGULAIR 10 MG PO (22:31)
[2025-06-12] MEDS: ZESTRIL 20 MG PO (22:31)
[2025-06-12] MEDS: FLOMAX 0.4 MG PO (22:32)
[2025-06-12] MEDS: MELATONIN 5 MG PO (23:39)
--- NOTE | 2025-06-13 00:04 | PTCARENOTE ---
Received pt from nightshift RN at 2300 resting in bed. A-paced on tele, HR 60's. R groin site C/D/I, no bleeding or hematoma noted at this time. Educated pt on activity restrictions for groin site, pt verbalizes understanding. Urinal provided to pt
at bedside. Encouraged pt to call RN w/ any questions/concerns. Call lara within reach.
[2025-06-13 04:31] VITALS: BP 140/86
[2025-06-13 04:38] VITALS: BMI 27.8
[2025-06-13 05:39] LABS: Blood Urea Nitrogen 10 mg/dl (9-20); Calcium 9.3 mg/dl (8.4-10.2); Carbon Dioxide 28 mmol/L (22-30); Chloride 102 mmol/L (98-107); Estimated Creatinine Clearance 89 ml/min; Glucose 107 mg/dl (70-99); Magnesium 2.0 mg/dl (1.6-2.3); Potassium 3.8 mmol/L (3.5-5.1); Sodium 136 mmol/L (135-145); eGFR > 60.00
[2025-06-13 06:01] LABS: Hematocrit 40.9 % (39.0-52.0); Hemoglobin 14.4 g/dL (13.0-18.0); Mean Corp Hgb Conc. 35.2 g/dL (33.0-37.0); Mean Corpuscular Volume 91.1 fL (80.0-94.0); Platelet Count 148 10^3/uL (130-400); Red Cell Dist. Width 12.6 % (11.5-14.5)
[2025-06-13 06:46] VITALS: BP 144/75
[2025-06-13] MEDS: FLUSH (NSS) 1 FLUSH IV (07:44)
[2025-06-13] MEDS: LIPITOR 80 MG PO (07:45)
[2025-06-13] MEDS: KCL 20 MEQ PO (07:52)
[2025-06-13] MEDS: ELIQUIS 5 MG PO (08:28)
--- NOTE | 2025-06-13 08:49 | W.PN.CD ---
Today's Communication / Plan
-
- Stable for discharge.
Impression / Plan
-
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
single-chamber atrial leadless pacemaker implantation with recent infection and abscess.
Sick sinus syndrome
- Status post single-chamber atrial Aveir leadless pacemaker -06/12/2025
- Currently patient is 100% a paced.
- Pacemaker was interrogated�patient's threshold and sensing has significantly improved.
- Right groin was inspected. No hematoma.
- Mild bleeding overnight might cause ecchymosis in the next few days but no sign of any significant bleeding noted.
- Ambulating and should be able to go home today.
Paroxysmal atrial fibrillation
- Status post A-fib ablation on 03/05/2024�pulse select pulsed field ablation
- PVI without any significant scar noted.
- On Eliquis
CAD
- Status post PCI
- On Eliquis/Plavix.
- On Lipitor
Physical Exam
Vital Signs/Labs
Vital Signs
Temp Pulse Resp BP Pulse Ox
99.3 F 82 20 144/75 95
06/13/25 06:46 06/13/25 07:00 06/13/25 06:46 06/13/25 06:46 06/13/25 06:46
06/12/25 06/13/25 06/14/25
06:59 06:59 06:59
Actual Weight 80.3 kg
06/13/25 04:44
06/13/25 04:44
Magnesium 2.0 mg/dl (1.6-2.3) 06/13/25 04:44
Physical Exam
Constitutional: No acute distress and Comfortable
EENT: Anicteric and Moist mucous membranes
Cardiovascular: Rhythm & rate is regular, Pedal edema is absent and JVD pressure is normal
Respiratory: Respiratory effort normal, Lungs clear to auscul. and Wheeze Absent
GI: Soft, Non tender and Normal bowel sounds
Neuro/Psych: Alert, Oriented and AO x 3
Data Reviewed
-
Date of Service: June 13, 2025
Medical Decision Making: Reviewed Test Results, Test Interpretation and Review of Case with other Provider
EKG: Tracing Personally Visualized and interpreted
Labs: Labs Reviewed by me
Old Records: Reviewed
--- NOTE | 2025-06-13 09:01 | W.CARD.DEVCH ---
Cardiac Device Check
-
Device: Pacemaker
Anchor Tack Puller: [employer]
The patient's device was interrogated with assistance of the device graphic art sales representative followed by a complete physician review. The device had normal function. No abnormalities seen.
--- NOTE | 2025-06-13 09:08 | PTCARENOTE ---
The patient is aaox3. His vital signs are stable. NSR with >90% A-pacing is noted on the monitor. His Right groin dressing is c/d/i. His right groin is soft with no hematoma present. He states that his groin site is tender and rates it a 2/10 on
scale. Tylenol offered however he declined. Activity restrictions and post PPM wound care reviewed with the patient. He drove himself to the hospital yesterday for his procedure. He understands that he can't drive until 24hr post anesthesia. He
agreed to wait till after 1pm to be discharged so he can drive himself home.
--- NOTE | 2025-06-13 09:35 | W.DS.TRANS ---
DC Summary - [employer] Consult[employer]
-
Discharge Instructions:
Discharge Diagnosis/Procedures Right atrial leadless pacemaker implant
Diet Low Cholesterol
Driving Restrictions No driving for 24 hours
Instructions:
Stand-Alone Forms: DC Instructions- Cath/EP Lab
Changes to Home Medications: No
Discharge Medications:
DC Medications w/original date entered in [employer]
apixaban 5 mg tablet (Eliquis) 5 mg PO BID Blood clot prevention/tx 06/21/21
albuterol sulfate 2.5 mg/3 mL (0.083 %) solution for nebulization 2.5 mg inhalation Q6HPRN PRN SOB 11/27/23
albuterol sulfate 90 mcg/actuation aerosol inhaler 2 puff inhalation Q6HPRN PRN Wheezing, shortness of breath 11/27/23
azelastine 205.5 mcg (0.15 %) nasal spray 1 spray intranasal QPM 11/27/23
lisinopril 20 mg tablet 20 mg PO HS 11/27/23
melatonin 5 mg tablet 5 mg PO HSPRN PRN sleep 11/27/23
montelukast 10 mg tablet 10 mg PO HS 11/27/23
multivitamin 1 tab PO DAILY 11/27/23
nitroglycerin 0.4 mg sublingual tablet 0.4 mg sublingual [id number] PRN chest pain #25 tabs 11/29/23
atorvastatin 40 mg tablet 80 mg PO DAILY 06/12/25
cholecalciferol (vitamin D3) 25 mcg (1,000 unit) tablet 25 mcg PO DAILY 06/12/25
magnesium 200 mg tablet 200 mg PO DAILY 06/12/25
tamsulosin 0.4 mg capsule 0.4 mg PO HS 06/12/25
zinc acetate 50 mg (zinc) capsule 50 mg PO DAILY 06/12/25
furosemide 40 mg tablet 40 mg PO DAILY #0 tabs 06/13/25
Home Medication Changes
Pending Results: No
[2025-06-13 11:46] VITALS: BP 109/73
== END 2025-06-13 13:21 | disposition home or self-care (01) ==
LOC: CATH 08:59
PROVIDERS: Nurse Practitioner Adult Health; ATTENDING PHYSICIAN Internal Medicine Cardiovascular Disease; FAMILY PHYSICIAN Family Medicine; OTHER PHYSICIAN Internal Medicine Cardiovascular Disease
DX: I49.5 Sick sinus syndrome (principal); Z00.6 Encounter for examination for normal comparison and control in clinical research program; E78.5 Hyperlipidemia, unspecified; F41.9 Anxiety disorder, unspecified; I10 Essential (primary) hypertension; I25.10 Atherosclerotic heart disease of native coronary artery without angina pectoris; Z95.5 Presence of coronary angioplasty implant and graft; I27.20 Pulmonary hypertension, unspecified; I34.0 Nonrheumatic mitral (valve) insufficiency; I48.0 Paroxysmal atrial fibrillation; I49.8 Other specified cardiac arrhythmias; I65.02 Occlusion and stenosis of left vertebral artery; J45.909 Unspecified asthma, uncomplicated; N40.1 Benign prostatic hyperplasia with lower urinary tract symptoms; Z79.01 Long term (current) use of anticoagulants; Z79.899 Other long term (current) drug therapy
CPT/HCPCS: 33274; 36415; 71045; 80048; 80053; 83735; 85025; 85027; 93005; C1769; C1773; C1786; C1892; C1894; J1742